=== PATIENT | female | born 2000 | race Two or more races ===

== ENCOUNTER 2021-05-28 13:24 | Inpatient (IN) | payer OTHER ==
[~2021-05-28] VITALS: Ht 165.1 cm; Wt 59.0 kg
[2021-05-28] MEDS ORDERED: NIFEDIPINE20 MG PO (15:22)
[2021-05-28] MEDS ORDERED: INDOMETHACIN50 MG PO (15:23)
[2021-05-28] MEDS ORDERED: IRON325 MG PO (15:24)
[2021-05-28] MEDS ORDERED: CEFUROXIME500 MG PO (15:24)
== END 2021-05-30 14:52 | disposition home or self-care (01) | DRG 833 ==
LOC: LDR 13:24
PROVIDERS: ADMIT Specialist; ATTEND Specialist
PROC: 4A1HXFZ Monitoring of Products of Conception, Cardiac Rhythm, External Approach (ICD-10-PCS; principal; 2021-05-28)
PROC: BY4CZZZ Ultrasonography of Second Trimester, Single Fetus (ICD-10-PCS; 2021-05-28)
DX: O47.02 False labor before 37 completed weeks of gestation, second trimester (principal); O99.012 Anemia complicating pregnancy, second trimester; D64.9 Anemia, unspecified; Z3A.22 22 weeks gestation of pregnancy

== ENCOUNTER 2021-09-14 16:20 | Inpatient (IN) | payer OTHER ==
[~2021-09-14] VITALS: Ht 165.1 cm; Wt 67.1 kg
[~2021-09-14 16:20] MED LIST: CEFUROXIME500 MG PO; INDOMETHACIN50 MG PO; IRON325 MG PO; NIFEDIPINE20 MG PO
[2021-09-15] MEDS ORDERED: TERBUTALINE SU2.5 MG (09:00)
== END 2021-09-17 14:29 | disposition home or self-care (01) | DRG 788 ==
LOC: LDR 16:20 → O/R 09-15 09:21 → OB/GYN 09-15 11:29
PROVIDERS: ADMIT Specialist; ATTEND Specialist
PROC: 10D00Z1 Extraction of Products of Conception, Low, Open Approach (ICD-10-PCS; principal; 2021-09-14)
PROC: 4A1HXCZ Monitoring of Products of Conception, Cardiac Rate, External Approach (ICD-10-PCS; 2021-09-14)
DX: O82 Encounter for cesarean delivery without indication (principal); Z3A.38 38 weeks gestation of pregnancy; Z20.822 Contact with and (suspected) exposure to COVID-19; Z37.0 Single live birth